=== PATIENT | male | born 1940 | race Caucasian/White ===

== ENCOUNTER 2016-03-21 11:43 | Observation (INO) | payer OTHER ==
[2016-03-21 13:56] VITALS: RESP 20
[2016-03-21] MEDS ORDERED: NORMAL SALINE 10 ML SYRINGE FLUSH IVP PRN (14:16)
[2016-03-21] MEDS ORDERED: Sodium Chloride 0.9% 500 ML PRIMARY IV ONE (14:19)
--- NOTE | 2016-03-21 14:29 | PDOC ---
History and Physical - History of Present Illness Date and Time of Service: 03/21/2016 2 PM Chief Complaint: Dyspnea of 7-10 days duration History of Present Illness: This is a 75 years old male with medical history significant for history of for congestive heart failure secondary to systolic dysfunction last ejection fraction was 40% , he is been having shortness of breath for about 10 days, because of that he went to the clinic in [place] they did some labs which showed anemia that was 2 days ago they suggested transfer elsewhere however he refused but then he came in again today to be evaluated and this time he accepted to be transferred for blood transfusion and evaluation of anemia. I was called by the physician in [place] and accepted the patient for symptomatic anemia. He said he walks for a few steps and he would feel short of breath. In addition he did report orthopnea there was no chest pain. He did notice some swelling in his legs and he started taking spironolactone about 2 or 3 days ago. On direct questioning he did report history of syncope that happened quite a few times a few months ago he said that was attributed to the diuretics and they took him off the Lasix. One of the time he had the a big hematoma involving his face based on his description. Past Medical History Medical History: 1. Idiopathic dilated cardiomyopathy Surgical History: 1. History of for knee replacement. 2. History of appendectomy Pertinent Family History: Father had a stroke Past Social History: Doesn't smoke but he chews, he drinks every day. No drugs. Tobacco Use: Light Tobacco Smoker Do you dip or chew tobacco: Yes Substance Use Type: None Alcohol Use: Other (He drinks daily) Medication / Allergies Home Medications: Home Medications Medication Instructions Recorded Confirmed Type Aspirin [Aspir 81] 81 mg PO DAILY 11/14/10 03/21/16 History Atorvastatin Calcium [Lipitor] 20 mg PO DAILY 11/14/10 03/21/16 History Pantoprazole Sodium [Protonix Tab] 40 mg PO BID 11/07/11 03/21/16 History Allopurinol 300 mg PO DAILY 03/21/16 03/21/16 History Metoprolol Succinate [Toprol XL] 25 mg PO DAILY 03/21/16 03/21/16 History Allergies/Adverse Reactions: Allergies Allergy/AdvReac Type Severity Reaction Status Date / Time No Known Allergies Allergy Verified 03/21/16 13:49 Review of Systems - Review of Systems All Systems: Reviewed & No Additional Complaints Except as Stated Exam - Vitals Vital Signs: Vital Signs Temperature 97.1 F Temperature Source Oral Pulse Rate [Apical] 64 Pulse Rate [Pulse Oximeter] 59 Respiratory Rate 20 Blood Pressure [Left Arm] 180/56 Pulse Ox 94 Oxygen Delivery Method Room Air Height 5 ft 10 in Weight 274 lb 6 oz - General General Appearance: POSITIVE: No Acute Distress, Cooperative - Head Head Exam: POSITIVE: Normal Inspection, Atraumatic - Eye Eye Exam: POSITIVE: Normal Appearance - ENT ENT Exam: POSITIVE: Normal Exam - Neck Neck Exam: POSITIVE: Normal Inspection - Respiratory Respiratory Exam: POSITIVE: Clear to Auscultation - Bilaterally - Cardiovascular Cardiovascular Exam: POSITIVE: Irregular Rhythm - GI/Abdominal GI/Abdominal Exam: POSITIVE: Normal Bowel Sounds, Non Tender, Non Distended, Soft - Rectal Rectal Exam: POSITIVE: Deferred - External Exam: POSITIVE: Deferred - Extremities Extremities Exam: POSITIVE: +1 Edema - Back Back Exam: POSITIVE: Normal Inspection - Neurological Neurological Exam: POSITIVE: Alert - Psychiatric Psychiatric Exam: POSITIVE: Normal Affect - Integumentary Integumentary Exam: POSITIVE: Normal Color Results - Labs CBC and BMP: 03/21/16 14:42 03/21/16 14:42 Assessment and Plan - Patient Problems (1) Symptomatic anemia Current Visit: Yes Status: Acute Comment: Will order repeat labs and ferritin and iron studies and B12. We'll plan to transfuse. (2) Irregular heart rate Current Visit: Yes Status: Acute Comment: His heart rhythm is irregular will do an EKG and will put him on telemetry. (3) History of congestive heart failure Current Visit: Yes Status: Acute Comment: Continue present medication but will give him Lasix if we decide to give him transfusion.
[2016-03-21] MEDS ORDERED: FUROSEMIDE 10 MG/1 ML - 2 ML VIAL IVP PRN ×2 (14:40→14:41)
--- NOTE | 2016-03-21 14:47 | EKG ---
[address] [address] Measurements Intervals [place] Rate: 64 P: AL: 0 QRS: -52 QRSD: 136 T: 252 QT: 404 QTc: 413 Interpretive Statements ATRIAL FLUTTER INTRAVENTRICULAR CONDUCTION DELAY No previous ECG available for comparison Electronically Signed On 03-21-16 15:41:51 MST by Renato Ferraro [email or web address]
[2016-03-21 14:53] LABS: BASOPHILS # (AUTO) 0.04 10*3/UL; BASOPHILS % (AUTO) 0.6 % (0-1); EOSINOPHILS % (AUTO) 4.4 % (0-8); HEMATOCRIT 26.3 % (42.0-52.0); HEMOGLOBIN 7.8 g/dL (14.0-18.0); IMM GRAN % (AUTO) 0.2 % (0-5); IMM GRAN# (AUTO) 0.01 10*3/UL; LYMPHOCYTES # (AUTO) 0.92 10*3/uL; LYMPHOCYTES % (AUTO) 14.4 % (10-50); MEAN CORPUSCULAR HEMOGLOBIN 20.9 PG (27-31); MEAN CORPUSCULAR HGB CONC 29.7 g/dL (33-37); MEAN PLATELET VOLUME 10.8 FL (7.4-12.2); MONOCYTES # (AUTO) 0.91 10*3/UL (0.3-0.8); MONOCYTES % (AUTO) 14.2 % (5-15); NEUTROPHILS # (AUTO) 4.23 10*3/UL; NEUTROPHILS % (AUTO) 66.2 % (50-80); RDW COEFFICIENT OF VARIATION 18.1 % (11.5-14.5); RED BLOOD COUNT 3.74 10^6/uL (4.70-6.10); WHITE BLOOD COUNT 6.39 10^3/uL (4.8-10.8)
[2016-03-21 14:54] LABS: PLATELET MORPHOLOGY COMMENT NORMAL MORPHOLOGY (NORM)
[2016-03-21 15:13] LABS: CHLORIDE 99 meq/L (98-112); SODIUM 135 meq/L (135-145)
[2016-03-21 15:14] LABS: ASPARTATE AMINO TRANSFERASE 47 IU/L (21-57); BLOOD UREA NITROGEN 18 mg/dL (7-22); CALCIUM 8.8 mg/dL (8.7-10.7); CREATININE 0.8 mg/dL (0.70-1.50); GLUCOSE 92 mg/dL (78-110); TOTAL PROTEIN 7.2 g/dL (6.1-8.0)
--- NOTE | 2016-03-21 16:08 | DCSUMMARY ---
Hospitalization Summary Admit Date: 03/21/16 Discharge Date: 03/21/16 Hospital Course: Discharge diagnosis 1. Atrial flutter with variable block with symptomatic bradycardia 2. Microcytic anemia 3. History of idiopathic dilated cardiomyopathy Hospital course This is 75 years old male with medical history significant for idiopathic dilated cardiomyopathy who has been having shortness of breath for about 10 days he was seen in the clinic in [place] and had hemoglobin checked 2 days ago his hemoglobin was 7.1, it was suggested to him to be transferred to a tertiary care center he refused but he followed up again today his hemoglobin was l 7.5 and I was called the prior admission for evaluation of symptomatic anemia. When I saw the patient in addition to the shortness of breath and swelling in his legs he did report orthopnea and also history of passing out that happened quite a few times and he attributed that to the diuretic he was on before. His exam was remarkable for an addition to the some edema in his legs his heart being irregular. In addition to ordering labs we ordered an EKG which showed atrial flutter with variable blocks. We did put him on telemetry and we've noticed period of non-conducting P-wave that last at times close to 5 seconds. With his heart rate dipping into the 40s. I did check on him he did mention that he did feel lightheaded and he said that he shook his head and then the symptoms went away. Because of the finding on the telemetry and EKG I did speak with the hot die picker Dr. Child and sent him the telemetry printout and we decided that its best for him to be transferred there for likely a pacemaker insertion. I spoke with the patient and he is agreeable for transfer patient will be transferred at one point today. Having a pacemaker inserted is a priorty over the transfusion now. Laboratory Results 03/21/16 Range/Units 14:42 WBC 6.39 (4.8-10.8) 10^3/uL RBC 3.74 L (4.70-6.10) 10^6/uL Hgb 7.8 L (14.0-18.0) g/dL Hct 26.3 L (42.0-52.0) % MCV 70.3 L (80-90) FL MCH 20.9 L (27-31) PG MCHC 29.7 L (33-37) g/dL RDW Std Deviation 44.4 (39-50) fL RDW Coeff of Ro 18.1 H (11.5-14.5) % Plt Count 334 (140-350) 10*3/uL MPV 10.8 (7.4-12.2) FL Immature Gran % (Auto) 0.2 (0-5) % Neut % (Auto) 66.2 (50-80) % Lymph % (Auto) 14.4 (10-50) % Lane % (Auto) 14.2 (5-15) % Eos % (Auto) 4.4 (0-8) % Baso % (Auto) 0.6 (0-1) % Immature Gran # (Auto) 0.01 10*3/UL Neut # (Auto) 4.23 10*3/UL Lymph # (Auto) 0.92 10*3/uL Lane # (Auto) 0.91 H (0.3-0.8) 10*3/UL Eos # (Auto) 0.28 10*3/UL Baso # (Auto) 0.04 10*3/UL WBC Morphology Comment Normal morphology (NORM) Plt Morphology Comment Normal morphology (NORM) RBC Morph Comment Normal morphology (NORM) Sodium 135 (135-145) meq/L Potassium 5.0 (3.8-5.2) meq/L Chloride 99 (98-112) meq/L Carbon Dioxide 23 (23-33) meq/L Anion Gap 13 (5-20) BUN 18 (7-22) mg/dL Creatinine 0.8 (0.70-1.50) mg/dL Estimated GFR [employer] BUN/Creatinine Ratio 22.50 H (6-20) Glucose 92 (78-110) mg/dL Calculated Osmolality 281.0 (267-292) mOsm/kg Calcium 8.8 (8.7-10.7) mg/dL Total Bilirubin 1.0 (0.3-1.2) mg/dL AST 47 (21-57) IU/L ALT 81 H (21-72) IU/L Alkaline Phosphatase 151 H (38-126) IU/L Total Protein 7.2 (6.1-8.0) g/dL Albumin 4.0 (3.5-4.8) g/dL Globulin 3.2 (2.50-4.10) g/dL Albumin/Globulin Ratio 1.20 L (1.3-2.0) mg/g Transfer instruction Diet low-salt Activity bedrest Medications Home Medications Medication Instructions Recorded Confirmed Type Aspirin [Aspir 81] 81 mg PO DAILY 11/14/10 03/21/16 History Atorvastatin Calcium [Lipitor] 20 mg PO DAILY 11/14/10 03/21/16 History Pantoprazole Sodium [Protonix Tab] 40 mg PO BID 11/07/11 03/21/16 History Allopurinol 300 mg PO DAILY 03/21/16 03/21/16 History Metoprolol Succinate [Toprol XL] 25 mg PO DAILY 03/21/16 03/21/16 History Follow-up per per Dr. Child postdischarge Exam - Vitals Vital Signs: Vital Signs Temperature 97.1 F Temperature Source Oral Pulse Rate [Apical] 64 Pulse Rate [Pulse Oximeter] 59 Pulse Rate 48 Respiratory Rate 20 Blood Pressure [Left Arm] 180/56 Pulse Ox 94 Oxygen Delivery Method Room Air Height 5 ft 10 in Weight 274 lb 6 oz Patient Problems - Patient Problem List (1) Symptomatic anemia Status: Acute (2) Irregular heart rate Status: Acute (3) History of congestive heart failure Status: Acute
[2016-03-21 17:46] VITALS: TEMP 97.5
[2016-03-21] MEDS ORDERED: ATORVASTATIN 20 MG TABLET PO SCH (21:00)
[2016-03-22] MEDS ORDERED: FUROSEMIDE 10 MG/1 ML - 4 ML IVP SCH (07:00)
[2016-03-22] MEDS ORDERED: ASPIRIN EC 81 MG TABLET PO SCH (09:00)
[2016-03-22] MEDS ORDERED: ALLOPURINOL 300 MG TABLET PO SCH (09:00)
[2016-03-22] MEDS ORDERED: METOPROLOL SUCCINATE 25 MG SR 24H TABLET PO SCH (09:00)
== END 2016-03-21 17:42 | disposition short-term general hospital (02) ==
LOC: MED/SURG 13:29
PROVIDERS: ADMIT Internal Medicine; ATTEND Internal Medicine
DX: I48.92 Unspecified atrial flutter (principal); D50.9 Iron deficiency anemia, unspecified; R00.9 Unspecified abnormalities of heart beat; I50.9 Heart failure, unspecified; I42.9 Cardiomyopathy, unspecified; R00.1 Bradycardia, unspecified
CPT/HCPCS: 36415; 80053; 82607; 82728; 82746; 83540; 83550; 85025; 86850; 86900; 86901; 86922; 93005; 93010; 94761